=== PATIENT | female | born 1945 | race Caucasian/White ===

== ENCOUNTER 2023-04-17 16:09 | Emergency (ER) | payer MEDICARE, SELFPAY ==
[2023-04-17] VITALS (8 sets, daily range): BP systolic 117–148; BP diastolic 58–90; PULSE 47–86; RESP 12–27; O2SAT 98–99; BMI 23.2
--- NOTE | 2023-04-17 16:17 | CT_ITS ---
The [address] [address] Patient Name: DINESH FOX MRN: [id number] date: 1945 Sex: F Assigned Patient Location: ER Current Patient Location: ER Accession/Order Number: [id number] Exam Date: 04/17/2023 16:30 Report Date: 04/17/2023 16:57 At the request of: MARYURI SAMANIEGO Procedure: CT head/brain wo con CT head/brain wo con, 04/17/2023 4:30 PM EDT INDICATION: confusion COMPARISON: None. TECHNIQUE: Axial CT images of the brain from skull base to vertex, including portions of the face and sinuses, were obtained without contrast. Multiplanar reformatted images were generated and reviewed as needed. Dose reduction techniques were achieved by using automated exposure control and/or adjustment of mA and/or kV according to patient size and/or use of iterative reconstruction technique. FINDINGS: CEREBRUM: Age-appropriate atrophy is present, without visible acute hemorrhage or lesion. Periventricular low density change is demonstrated, consistent with chronic small vessel disease. CEREBELLUM: No edema, hemorrhage, mass, acute infarction, or inappropriate atrophy. BRAINSTEM: No acute infarct, hemorrhage or gross structural abnormality. CSF SPACES: Ventricles, cisterns, and sulci are appropriate for age. Incidental cavum vergae. No hydrocephalus, subarachnoid hemorrhage, or mass. SKULL: No mass or other significant visible lesion. SINUSES: Limited views demonstrate no significant mucosal thickening or fluid. ORBITS: Limited views are unremarkable. OTHER: None. IMPRESSION: Age-related deep white matter changes consistent with chronic small vessel disease superimposed on overall findings of age-appropriate cortical atrophy. No acute intracranial abnormality is otherwise identified. Electronically authenticated by: Eloisa BASS Date: 04/17/2023 16:57
--- NOTE | 2023-04-17 16:17 | ECG_ITS ---
The [facility] Test Date: 2023-04-17 Pat Name: DINESH FOX Department: Room: - Gender: Female Tactical Debriefer: : 1945 Requested By: [id number] Order Number: [id number] Reading MD: ANDI LOYA Measurements Intervals [place] Rate: 82 P: 69 CT: 166 QRS: -81 QRSD: 88 T: 74 QT: 394 QTc: 433 Interpretive Statements 1100 Sinus rhythm 7300 Indeterminate axis 9120 atypical ECG No previous ECG available for comparison Electronically Signed On 04-18-2023 7:14:16 EDT by ANDI LOYA
--- NOTE | 2023-04-17 16:17 | XR_ITS ---
The [address] [address] Patient Name: DINESH FOX MRN: [id number] date: 1945 Sex: F Assigned Patient Location: ER Current Patient Location: ER Accession/Order Number: [id number] Exam Date: 04/17/2023 16:30 Report Date: 04/17/2023 16:54 At the request of: MARYURI SAMANIEGO Procedure: XR chest 1V EXAM: XR chest 1V HISTORY: altered MS COMPARISON: None. TECHNIQUE: AP portable study FINDINGS: The cardiovascular silhouette is normal. Atherosclerotic aorta without visible aneurysm. Lung dickey are well-expanded and clear. Pleural spaces are clear. The bony structures are unremarkable. IMPRESSION: No evidence for acute cardiopulmonary disease. Electronically authenticated by: Eloisa BASS Date: 04/17/2023 16:54
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
[2023-04-17 16:59] LABS: Basophils Percent Auto 0.8 % (0.2-2.0); Eosinophils Absolute Auto 0.1 10^3/uL (0.0-0.7); Eosinophils Percent Auto 1.4 % (0.9-7.0); Hematocrit 42.4 % (36.0-48.0); Hemoglobin 13.3 g/dL (12.0-16.0); Immature Granulocytes Abs Auto 0.03 10^3/uL (0.00-0.03); Immature Granulocytes Pct Auto 0.6 % (0.0-0.5); Lymphocytes Absolute Auto 1.2 10^3/uL (1.2-3.8); Mean Corpuscular HGB Conc 31.4 g/dL (29.9-35.2); Mean Corpuscular Volume 98.8 fL (81.0-99.0); Mean Platelet Volume 9.7 fL (9.5-13.5); Monocytes Absolute Auto 0.4 10^3/uL (0.3-0.8); Monocytes Percent Auto 7.4 % (1.7-12.0); Neutrophils Absolute Auto 3.4 10^3/uL (1.4-6.5); Neutrophils Percent Auto 65.8 % (43.0-75.0); Platelet Count 217 10^3/uL (150-450); Red Blood Count 4.29 10^6/uL (4.20-5.40); Red Cell Distribution Width 13.7 % (11.0-15.0); White Blood Count 5.1 10^3/uL (4.0-11.0)
[2023-04-17 17:03] LABS: Anion Gap 13.1; BUN Creatinine Ratio 17.1; Calcium 9.8 mg/dL (8.5-10.1); Carbon Dioxide 26.5 mmol/L (21.0-32.0); Chloride 107 mmol/L (98-107); Estimated GFR (African America 54 (>=60); Estimated GFR (Non-African Ame 45 (>=60); Glucose 100 mg/dL (74-106); Potassium 3.6 mmol/L (3.5-5.1); Sodium 143 mmol/L (136-145)
== END 2023-04-17 21:39 | disposition home or self-care (01) ==
PROVIDERS: Emergency Medicine; Emergency Provider Internal Medicine
DX: F03.90 Unspecified dementia, unspecified severity, without behavioral disturbance, psychotic disturbance, mood disturbance, and anxiety (principal)
CPT/HCPCS: 36415; 70450; 71045; 80048; 85025; 93005; 99285